=== PATIENT | female | born 1955 | race Caucasian/White ===

== ENCOUNTER → 2017-03-28 15:14 | Outpatient (REF) | payer OTHER, SELFPAY ==
[2017-03-28 18:24] LABS: Basophils # 0.1 K/mm3 (0-0.2); Basophils % 0.6 % (0.1-2.0); Eosinophils # 0.3 K/mm3 (0.0-0.4); Eosinophils % 2.8 % (0.1-12.0); Hematocrit 45.2 % (37.0-47.0); Hemoglobin 15.1 g/dL (12.2-16.2); Lymphocytes # 2.6 K/mm3 (0.7-4.5); Lymphocytes % 24.6 K/mm3 (10-50); Mean Corpuscular HGB Conc 33.5 g/dL (31.8-35.4); Mean Corpuscular Hemoglobin 29.3 pg (27.0-31.2); Mean Corpuscular Volume 87.6 fl (81-99); Mean Platelet Volume 10.2 fl (7.4-10.4); Monocytes # 0.4 K/mm3 (0.1-1.0); Neutrophils # 7.2 K/mm3 (1.8-7.8); Neutrophils % 67.9 % (37.0-80.0); Platelet Count 227 K/mm3 (142-424); Red Blood Count 5.16 M/mm3 (4.20-5.40); Red Cell Distribution Width 14.2 % (11.5-17.5); White Blood Count 10.6 K/mm3 (4.8-10.8)
[2017-03-28 19:14] LABS: Hemoglobin A1C 5.2 % (0.0-7.0)
[2017-03-28 19:23] LABS: Alanine Aminotransferase 44 U/L (12-78); Albumin Level 4.3 gm/dL (3.4-5.0); Albumin/Globulin Ratio 1.2 (1.1-1.8); Alkaline Phosphatase 190 U/L (46-116); Anion Gap 14.9 mEq/L (5-15); Aspartate Amino Transferase 25 U/L (15-37); Bilirubin,Total 0.4 mg/dL (0.2-1.0); Blood Urea Nitrogen 15 mg/dL (7-18); Calcium 9.7 mg/dL (8.5-10.1); Carbon Dioxide 25 mmol/L (21.0-32.0); Chloride 104 mmol/L (98-107); Chol/HDL Ratio 4.3 (1-3.5); Cholesterol 223 mg/dL (140-200); Creatinine,Serum 0.81 mg/dL (0.55-1.02); Estimated Glomerular Filt Rate 71 ml/min (>60); Free T4 (Free Thyroxine) 1.03 ng/dl (0.76-1.46); GFR (African American) 86 ML/MIN (>60); Globulin 3.5 gm/dl (1.3-3.2); Glucose 97 mg/dL (74-106); HDL Cholesterol 52 mg/dL (29-89); LDL Cholesterol 136 mg/dL (0-130); Potassium 4.9 mmoL/L (3.5-5.1); Sodium 139 mmol/L (136-145); Thyroid Stimulating Hormone 2.61 uIU/ml (0.358-3.740); Total Protein,Serum 7.8 gm/dL (6.4-8.2); Triglycerides 174 mg/dL (30-200); VLDL Cholesterol 35 mg/dL (0-40)
[2017-03-30 10:16] LABS: Hep A Ab, IgM Negative (Negative); Hepatitis B Core Antibody IgM Negative (Negative); Hepatitis B Surface Antigen Negative (Negative)
[2017-03-30 17:26] LABS: Hepatitis C Antibody <0.1 s/co ratio (0.0-0.9); Vitamin D 25 Hydroxy 11.7 ng/mL (30.0-100.0)
== END ==
LOC: LAB 15:14
PROVIDERS: Visit Provider Emergency Medicine
DX: J44.9 Chronic obstructive pulmonary disease, unspecified (principal)
CPT/HCPCS: 80053; 80061; 80074; 82652; 83036; 84439; 84443; 85025

== ENCOUNTER → 2017-04-11 09:30 | Outpatient (CLI) | payer OTHER, SELFPAY ==
--- NOTE | 2017-04-11 09:33 | XR_ITS ---
XR chest 2V HISTORY: ITS.REASON: Copd ORDERING PHYSICIAN: Mathew Mayfield MD PATIENT AGE: 61 years COMPARISON: None available FINDINGS: The cardiomediastinal silhouette and pulmonary vascularity are within normal limits. The lungs are clear without infiltrates, suspicious nodules, or pleural effusions. There are degenerative changes in the thoracic spine with osteophytes noted. No acute bony abnormalities. IMPRESSION: No acute finding
--- NOTE | 2017-04-11 09:33 | XR_ITS ---
XR knee RT 3V HISTORY: ITS.REASON: Right Knee Pain ORDERING PHYSICIAN: Mathew Mayfield MD PATIENT AGE: 61 years COMPARISON: None FINDINGS: There are severe osteoarthritic changes of the lateral compartment and patellofemoral joint with suprapatellar effusion present. Osteosclerosis involves the lateral femoral condyle and lateral tibial plateau. No acute fracture or dislocation evident. Generalized vascular calcification. IMPRESSION: Severe osteoarthritis with knee joint effusion
== END ==
PROVIDERS: PCP Emergency Medicine; Visit Provider Emergency Medicine
DX: J44.9 Chronic obstructive pulmonary disease, unspecified (principal); M25.561 Pain in right knee
CPT/HCPCS: 71046; 73562

== ENCOUNTER → 2017-05-02 10:37 | Outpatient (CLI) | payer OTHER, SELFPAY ==
[2017-05-02 14:00] LABS: Amphetamine/Metha Screen,Urine Negative ng/mL (<1000); Barbiturates Screen,Urine Negative ng/mL (<200); Benzodiazepines Screen,Urine Negative ng/mL (200); Cannabinoid Screen,Urine Negative ng/mL (<50); Cocaine Screen,Urine Negative ng/g (<300); Methadone Screen,Urine Negative ng/mL (<300); Opiate Screen,Urine Negative ng/mL (<300); Phencyclidine Screen,Urine Negative ng/mL (<25)
== END ==
PROVIDERS: Visit Provider Nurse Practitioner Family
DX: Z79.899 Other long term (current) drug therapy (principal)
CPT/HCPCS: 80305

== ENCOUNTER → 2022-07-18 14:25 | Outpatient (CLI) | payer MEDICARE, SELFPAY ==
[2022-07-18 14:39] LABS: Basophils % 0.2 % (0.1-2.0); Eosinophils # 0.1 K/mm3 (0.0-0.4); Eosinophils % 0.9 % (0.1-12.0); Hemoglobin 11.3 g/dL (12.2-16.2); Lymphocytes # 0.7 K/mm3 (0.7-4.5); Lymphocytes % 9.7 % (10-50); Mean Corpuscular HGB Conc 30.5 g/dL (31.8-35.4); Mean Corpuscular Hemoglobin 31.3 pg (27.0-31.2); Mean Corpuscular Volume 102.5 fl (81-99); Mean Platelet Volume 9.4 fl (7.4-10.4); Monocytes # 0.2 K/mm3 (0.1-1.0); Monocytes % 2.2 % (1.7-9.3); Neutrophils # 6.1 K/mm3 (1.8-7.8); Neutrophils % 87.1 % (37.0-80.0); Platelet Count 127 K/mm3 (142-424); Red Blood Count 3.61 M/mm3 (4.20-5.40); Red Cell Distribution Width 15.4 % (11.5-17.5)
[2022-07-18 14:45] LABS: Chloride 107 mmol/L (98-107); Potassium 4.4 mmoL/L (3.5-5.1); Sodium 137 mmol/L (136-145)
[2022-07-18 14:47] LABS: Blood Urea Nitrogen 33 mg/dl (7-17); Estimated Glomerular Filt Rate 26 ml/min (>60); GFR (African American) 32 ML/MIN (>60)
[2022-07-18 14:48] LABS: Alanine Aminotransferase 51 U/L (12-78); Albumin/Globulin Ratio 0.6 (1.1-1.8); Alkaline Phosphatase 255 U/L (38-126); Anion Gap 15.4 mEq/L (5-15); Aspartate Amino Transferase 74 U/L (14-36); Bilirubin,Total 1.5 mg/dl (0.2-1.3); Calcium 8.2 mg/dl (8.4-10.2); Carbon Dioxide 19 mmol/L (22.0-30.0); Globulin 3.6 g/dL (1.3-3.2); Glucose 104 mg/dl (74-100); Total Protein,Serum 5.6 g/dl (6.3-8.2)
[2022-07-18 14:49] LABS: Ammonia 85 umol/L (9-30)
[2022-07-18 15:09] LABS: MANUAL DIFFERENTIAL MANUAL DIFFERENTIAL (MANUAL DIFF)
[2022-07-18 15:39] LABS: Thyroid Stimulating Hormone 5.54 uIU/mL (0.465-4.68)
[2022-07-18 15:59] LABS: Eosinophils % 1 % (0-3); Lymphocytes % 10 % (10-50); Macrocytosis 1+; Monocytes % 4 % (2-9); Neutrophils % 85 % (42-76); Nucleated Red Blood Cells 2; Platelet Estimate Slight Decrease; Total Cells Counted 100
== END ==
PROVIDERS: PCP Emergency Medicine; Visit Provider Emergency Medicine
DX: E87.1 Hypo-osmolality and hyponatremia (principal)
CPT/HCPCS: 80053; 82140; 84443; 85007; 85025